=== PATIENT | female | born 1960 | race Caucasian/White ===

== ENCOUNTER 2020-03-24 23:58 | Observation (INO) ==
[2020-03-25] MEDS ORDERED: fentaNYL citrate 100 MCG/2 ML VIAL IV STA (00:16)
--- NOTE | 2020-03-25 00:23 | Emergency Department Note ---
Impression & Plan Altered mental status, Amnesia, Acute headache ED Provider Note Name: ANGELICA FU Age: 60 Sex: F Arrives Via: Walk-In Informant: Patient, ED Provider: Rajesh Corona MD Chief Complaint: Confusion Impression: Altered Mental Status Amnesia Acute Headache Medical Decision Makin yr old female with history Hypothyroid, depression, hyperlipidemia, htn, and remote migraines arrives with after 4+ hours of acute confusion and altered mental status. She has diffuse headache currently as well. She has no focal neuro exam findings, but is having issues with her memory of the events in the last few days, though her nursing home memory is completely intact (just somewhat slow to respond). She was sent for urgent CTa head/neck without acute findings. Pain controlled somewhat with initial dose fentanyl. Labs unremarkable. Her memory does seem to be returning somewhat while here. I am suspicious that this is complex migraine of some sort, though can not rule out stroke at this time. No seizure findings thus seems unlikely seizure related. She does not have evidence meningitis. SAH unlikely given normal CT with less than 6 hours symptoms. Not TPA candidate given no clear neuro deficits other than memory which is slowly improving as it is. Will need to come in for further management given she still has some memory issue, though is improving. She was given decadron/toradol/mag in effort to treat as Migraine varient. Prior Medical Record and Triage/Nursing Notes reviewed by Me Additional history obtained from chart and Differentials:Infection, hypoglycemia, electrolyte abnormalities, overdose, toxicologic, cardiac sources, intracerebral event, neurologic, trauma, as well as other pathologies. Vital Signs: reviewed and remarkable for HTN Interventions: saline lock, fenantyl 50mcg IV, nss bolus, decadron 10mg IV, t oradol 30mg IV, mag 1 gm IV Labs:Reviewed and remarkable for no significant abnormalities Imaging:[facility] Radiologist interpretation reviewed by me: CTA head/neck no acute findings EKG:Per My Interpretation: Indication confusion: Sinus Robin 56 bpm, qtc 418. No Ectopy. No Ischemia. Compared to EKG 03/25/20, no significant changes. Cardiac/Tele Monitoring: Cardiac Monitoring: An Order was placed for continuous cardiac monitoring. The monitor shows a rate of 60 with a normal sinus rhythm. Consults:Dr Jenna Leblanc [facility] Plan: Disposition:Hospitalization. Referred to: PCP Condition: Good Prescriptions:none PDMP: n/a History of Present Illness:60 yr old female arrives for evaluation of acute confusion. notes patient seemed distant and confused around 8pm this evening (4 hrs [employer]). He notes she was sitting just staring in to space. Over the next few hours he realized she had no memory of what had gone on over the last 3 days. He was able to get her in the car and on the way here he memory started returning. Patient notes she has diffuse throbbing headache. Began posterior and is now radiating throughout brain. No neck pain/stiffness, nausea, vision change, fevers, nor weakness. notes a very busy weekend with lots of family visiting which she had no memory of until just a few minutes ago. There is no reported syncope, loc, head injuries, nor other trauma. She has no chest pain, sob, sore throat, double vision, weakness, urinary/bowel changes, abdominal pain, leg pain/swelling, rashes, nor other symptoms. She reports taking all medications properly. She admits she can not remember what happened this afternoon, though vaguely remembers eating turkey dinner (which confirms). She denies etoh, drug use. Nothing seems to make symptoms better though light/sound makes headache worse. She does report very remote history of Migraines though denies any in last few years. ROS: See above HPI for pertinent positives & negatives. A total of 10 systems reviewed and were otherwise negative. Past Medical History:Hypothyroid, depression, hyperlipidemia, HTN, Migraines Past Surgical History:Cardiac Cath (reports negative) Family History:State healthy Social History:Works with elderly, previously worked for government, denies etoh, drugs, tobacco Home Medications:citrizine, vit d3, citalopram, levothyroxine, omeprazole, pravastatin Allergies:NKDA Vitals:Blood Pressure: 183/91, Pulse 67, RR 20, T 36.7C, O2 94% on RA Physical Exam: GENERAL: Patient is uncomfortable appearing and in mild distress. EYES: No scleral icterus, unremarkable pupils. ENT: Mucous membranes moist, no nasal congestion. NECK: No masses appreciated, nomeningismus, trachea is midline. RESPIRATORY: No dyspnea. Clear to auscultation and equal bilaterally. No wheeze, no rhonchi. CARDIOVASCULAR: Regular rate and rhythm.No murmurs, rubs, gallops appreciated. GASTROINTESTINAL: Abdomen soft, non-tender, no peritonitis.Bowel sounds positive.No masses appreciated. BACK: No midline tenderness, no CVA tenderness EXTREMITIES: Normal motion all extremities, no cyanosis, no edema. NEUROLOGIC: Alert though appears mildly encephalopathic with slow to respond, has lapses in memory of the last few hours, no acute motor or sensory deficits, no focal weakness, cranial nerves grossly intact. SKIN: No rash, no jaundice, no diaphoresis. PSYCH: Appropriate GCS: 15 ED Course: Times/Reassessments: multiple throughout with gradually improving headache and memory. No neuro deficits no findings of infectious etiology on repeat exams. Rajesh Corona MD Past Med/Surg History Medical History (Updated 03/25/20 @ 05:52 by Rajesh Corona MD) No significant active problems Social History Smoking Status: Never smoker Hx Alcohol Use: No Hx Substance Use: No Preferred Language: Setswana Communication Ability: Effective Concrete Tester Required: No Beliefs That Will Affect Care: None Current Living Situation: Spouse Other Information That Helps Us Care for You: No Feels Safe at Home: Yes Safety Concerns: Feels Safe At This Time Assistive Devices: CPAP Allergies Allergies Allergy/AdvReac Type Severity Reaction Status Date / Time atorvastatin [From Lipitor] Allergy Unknown Unknown Verified 03/25/20 00:26 Home Meds Home Medications Medication Instructions Recorded Confirmed cetirizine 10 mg PO DAILY PRN 03/25/20 03/25/20 cholecalciferol (vitamin D3) 25 mcg PO DAILY 03/25/20 03/25/20 [Vitamin D3] citalopram 20 mg PO DAILY 03/25/20 03/25/20 levothyroxine 75 mcg PO DAILY 03/25/20 03/25/20 [id number] acid [One 1 tab PO QAM 03/25/20 03/25/20 Daily For Women] omeprazole 20 mg PO DAILY 03/25/20 03/25/20 pravastatin 20 mg PO DAILY 03/25/20 03/25/20 Results & Data (ED) Vital Signs Vital Signs - 24 hr 03/25/20 00:03 03/25/20 01:40 Temperature 36.7 C Temperature Source Oral Pulse Rate 67 Pulse Rate [Left Finger] 66 Respiratory Rate 20 18 Respiratory Depth Normal Blood Pressure 183/91 H Blood Pressure [Right Arm] 161/90 H Blood Pressure Mean 121 Blood Pressure Mean [Right Arm] 113 Blood Pressure Position [Right Arm] Sitting Pulse Oximetry 94 96 Oxygen Delivery Method Room Air Room Air Sepsis Recent Fever Within 48 Hours No Sepsis New/Unexplained Change in Mental Status N/A Sepsis Action Taken by Nursing No Action Required Laboratory Data Result diagrams: 03/25/20 00:32 03/25/20 00:32 Lab Results 03/25/20 03/25/20 03/25/20 Range/Units 00:32 00:32 00:32 WBC 11.40 H (4.8-10.8) K/uL RBC 4.54 (4.2-5.4) M/uL Hgb 13.3 (12.0-16.0) g/dL Hct 39.6 (37-47) % MCV 87.2 (80-100) fL MCH 29.3 (25-34) pg MCHC 33.6 (32-36) g/dL RDW Std Deviation 43.4 (36.4-46.3) fL RDW Coeff of [place] 13.6 (11.5-14.5) % Plt Count 183 (130-400) K/uL MPV 9.9 (7.4-10.4) fL Immature Gran % (Auto) 0.2 % Neut % (Auto) 73.3 % Lymph % (Auto) 19.6 % [place] % (Auto) 5.1 % Eos % (Auto) 1.6 % Baso % (Auto) 0.2 % Neut # (Auto) 8.37 H (1.4-6.5) K/uL Lymph # (Auto) 2.23 (1.2-3.4) K/uL [place] # (Auto) 0.58 (0.11-0.59) K/uL Eos # (Auto) 0.18 (0-0.5) K/uL Baso # (Auto) 0.02 (0-0.2) K/uL Immature Gran # (Auto) 0.02 (0.00-0.02) K/uL PT 10.3 (9.0-12.0) Seconds INR 1.0 (0.9-1.1) APTT 26.7 (21.0-31.0) Seconds PTT Ratio 1.0 Sodium 143 (136-145) mmol/L Potassium 3.9 (3.5-5.1) mmol/L Chloride 109 H (98-107) mmol/L Carbon Dioxide 29 (21-32) mmol/L Anion Gap 5.0 (3-11) BUN 15 (7-18) mg/dl Creatinine 1.07 (0.6-1.2) mg/dl Est Cr Clr Drug Dosing 60.8 ml/min Est GFR ( Amer) 64.4 Est GFR (Non-Af Amer) 55.6 BUN/Creatinine Ratio 13.7 (10-20) Glucose 95 (70-99) mg/dl Calcium 8.9 (8.5-10.1) mg/dl Magnesium 2.4 (1.8-2.4) mg/dl Total Bilirubin 0.5 (0.2-1) mg/dl Direct Bilirubin 0.1 (0-0.2) mg/dl AST 14 L (15-37) U/L ALT 23 (12-78) U/L Alkaline Phosphatase 74 (45-117) U/L Troponin I < 0.015 (0-0.045) ng/ml Total Protein 7.3 (6.4-8.2) gm/dl Albumin 3.8 (3.4-5.0) gm/dl TSH 1.780 (0.300-4.500) uIu/ml Urine Color Urine Appearance (Clear) Urine pH (4.5-7.5) Ur Specific [place] (1.000-1.030) Urine Protein (Negative) Urine Glucose (UA) (Negative) Urine Ketones (Negative) Urine Blood (Negative) Urine Nitrite (Negative) Urine Bilirubin (Negative) Urine Urobilinogen (Negative) Ur Leukocyte Esterase (Negative) Urine Opiates Screen (Neg) Ur Methadone, Qual (Neg) Urine Barbiturates (Neg) Ur Phencyclidine (PCP) (Neg) U Amphetamin/Meth Scrn (Neg) MDMA (Ecstasy) Screen (Neg) U Benzodiazepines Scrn (Neg) Ur Cocaine Metabolite (Neg) U Marijuana (THC) Screen (Neg) Ethyl Alcohol mg/dL (0-3) mg/dl 03/25/20 03/25/20 03/25/20 Range/Units 00:45 00:45 00:51 WBC (4.8-10.8) K/uL RBC (4.2-5.4) M/uL Hgb (12.0-16.0) g/dL Hct (37-47) % MCV (80-100) fL MCH (25-34) pg MCHC (32-36) g/dL RDW Std Deviation (36.4-46.3) fL RDW Coeff of [place] (11.5-14.5) % Plt Count (130-400) K/uL MPV (7.4-10.4) fL Immature Gran % (Auto) % Neut % (Auto) % Lymph % (Auto) % [place] % (Auto) % Eos % (Auto) % Baso % (Auto) % Neut # (Auto) (1.4-6.5) K/uL Lymph # (Auto) (1.2-3.4) K/uL [place] # (Auto) (0.11-0.59) K/uL Eos # (Auto) (0-0.5) K/uL Baso # (Auto) (0-0.2) K/uL Immature Gran # (Auto) (0.00-0.02) K/uL PT (9.0-12.0) Seconds INR (0.9-1.1) APTT (21.0-31.0) Seconds PTT Ratio Sodium (136-145) mmol/L Potassium (3.5-5.1) mmol/L Chloride (98-107) mmol/L Carbon Dioxide (21-32) mmol/L Anion Gap (3-11) BUN (7-18) mg/dl Creatinine (0.6-1.2) mg/dl Est Cr Clr Drug Dosing ml/min Est GFR ( Amer) Est GFR (Non-Af Amer) BUN/Creatinine Ratio (10-20) Glucose (70-99) mg/dl Calcium (8.5-10.1) mg/dl Magnesium (1.8-2.4) mg/dl Total Bilirubin (0.2-1) mg/dl Direct Bilirubin (0-0.2) mg/dl AST (15-37) U/L ALT (12-78) U/L Alkaline Phosphatase (45-117) U/L Troponin I (0-0.045) ng/ml Total Protein (6.4-8.2) gm/dl Albumin (3.4-5.0) gm/dl TSH (0.300-4.500) uIu/ml Urine Color Yellow Urine Appearance Clear (Clear) Urine pH 8.0 H (4.5-7.5) Ur Specific [place] 1.009 (1.000-1.030) Urine Protein Negative (Negative) Urine Glucose (UA) Negative (Negative) Urine Ketones Negative (Negative) Urine Blood Negative (Negative) Urine Nitrite Negative (Negative) Urine Bilirubin Negative (Negative) Urine Urobilinogen Negative (Negative) Ur Leukocyte Esterase Negative (Negative) Urine Opiates Screen Neg (Neg) Ur Methadone, Qual Neg (Neg) Urine Barbiturates Neg (Neg) Ur Phencyclidine (PCP) Neg (Neg) U Amphetamin/Meth Scrn Neg (Neg) MDMA (Ecstasy) Screen Neg (Neg) U Benzodiazepines Scrn Neg (Neg) Ur Cocaine Metabolite Neg (Neg) U Marijuana (THC) Screen Neg (Neg) Ethyl Alcohol mg/dL < 3.0 (0-3) mg/dl Administered Medications Discontinued Medications Dexamethasone (Dexamethasone Sod Inj 10 Mg/Ml Vial) 10 mg IV NOW ONE Stop: 03/25/20 02:23 Last Admin: 03/25/20 02:37 Dose: 10 mg Documented by: [id number] Fentanyl Citrate (Fentanyl Citrate 100 Mcg/2 Ml Vial) 50 mcg IV NOW STA Stop: 03/25/20 00:17 Last Admin: 03/25/20 01:43 Dose: 50 mcg Documented by: [id number] Sodium Chloride (Nss 1000ml) 1,000 mls @ 125 mls/hr IV .Q8H VISHAL Stop: 04/24/20 00:29 Last Admin: 03/25/20 01:43 Dose: 125 mls/hr Documented by: [id number] Magnesium Sulfate/Dextrose (Magnesium Sulfate / D5w) 1 gm in 100 mls @ 100 mls/hr IV NOW STA Stop: 03/25/20 03:22 Last Infusion: 03/25/20 03:38 Dose: 100 mls/hr Documented by: [id number] Admin: 03/25/20 02:38 Dose: 100 mls/hr Documented by: [id number] Sodium Chloride (Nss 1000ml) 1,000 mls @ 125 mls/hr IV .Q8H VISHAL Stop: 04/24/20 02:29 Last Admin: 03/25/20 02:38 Dose: Not Given Documented by: [id number] Ioversol (Optiray 320 125ml) 125 ml IV ONCE ONE Stop: 03/25/20 01:42 Last Admin: 03/25/20 01:41 Dose: 118 ml Documented by: [id number] Ketorolac Tromethamine (Ketorolac Tromethamine 15 Mg/Ml Vial) 15 mg IV NOW STA Stop: 03/25/20 02:23 Last Admin: 03/25/20 02:37 Dose: 15 mg Documented by: [id number] Discharge Plan Visit Data Chief Complaint: Altered Mental Status Stated Complaint: MEMORY LOSS ED Provider: Rajesh Corona Discharge Problem: Altered mental status, Amnesia, Acute headache Patient Disposition: Admitted As Inpatient Discharge Instructions Interventions: ED Discharge Assessment Last Done: 03/25/20 04:18 Discharge Problem: Altered mental status Qualifiers: Altered mental status type: disorientation Qualified Code(s): R41.0 - Disorientation, unspecified Acute headache Qualifiers: Headache type: unspecified Intractability: not intractable Qualified Code(s): R51.9 - Headache, unspecified
[2020-03-25] MEDS ORDERED: SODIUM CHLORIDE 0.9% 1000ML 1,000 ML IV SCH ×2 (00:30→02:30)
[2020-03-25 00:46] LABS: Basophils # (auto) 0.02 K/uL (0-0.2); Basophils % (auto) 0.2 %; Eosinophils # (auto) 0.18 K/uL (0-0.5); Eosinophils % (auto) 1.6 %; Hematocrit (blood only) 39.6 % (37-47); Hemoglobin 13.3 g/dL (12.0-16.0); Immature Granulocytes # (auto) 0.02 K/uL (0.00-0.02); Immature Granulocytes % (auto) 0.2 %; Lymphocytes # (auto) 2.23 K/uL (1.2-3.4); Lymphocytes % (auto) 19.6 %; Mean Corpuscular Hemoglobin 29.3 pg (25-34); Mean Corpuscular Hgb Conc 33.6 g/dL (32-36); Mean Corpuscular Volume 87.2 fL (80-100); Mean Platelet Volume 9.9 fL (7.4-10.4); Monocytes # (auto) 0.58 K/uL (0.11-0.59); Monocytes % (auto) 5.1 %; Neutrophils # (auto) 8.37 K/uL (1.4-6.5); Neutrophils % (auto) 73.3 %; Platelet Count 183 K/uL (130-400); RDW Coefficient of Variation 13.6 % (11.5-14.5); RDW Standard Deviation 43.4 fL (36.4-46.3); Red Blood Count 4.54 M/uL (4.2-5.4)
[2020-03-25 00:56] LABS: Partial Thromboplastin Time 26.7 Seconds (21.0-31.0); Prothrombin Time 10.3 Seconds (9.0-12.0)
[2020-03-25 01:02] LABS: Alanine Aminotransferase 23 U/L (12-78); Albumin Level 3.8 gm/dl (3.4-5.0); Aspartate Aminotransferase 14 U/L (15-37); BUN Creatinine Ratio 13.7 (10-20); Bilirubin Direct 0.1 mg/dl (0-0.2); Blood Urea Nitrogen 15 mg/dl (7-18); Calcium 8.9 mg/dl (8.5-10.1); Carbon Dioxide 29 mmol/L (21-32); Chloride 109 mmol/L (98-107); Creatinine Clr Calc Pharmacy 60.8 ml/min; Est GFR (African American) 64.4; Est GFR (Non-African American) 55.6; Glucose 95 mg/dl (70-99); Magnesium 2.4 mg/dl (1.8-2.4); Potassium 3.9 mmol/L (3.5-5.1); Sodium 143 mmol/L (136-145)
[2020-03-25 01:13] LABS: Alkaline Phosphatase 74 U/L (45-117); Bilirubin,Total 0.5 mg/dl (0.2-1); Total Protein 7.3 gm/dl (6.4-8.2); Troponin I < 0.015 ng/ml (0-0.045)
[2020-03-25] MEDS ORDERED: OPTIRAY 320 125ml IV ONE (01:41)
[2020-03-25] MEDS ORDERED: DEXAMETHASONE SOD INJ 10 MG/ML VIAL IV ONE (02:22)
[2020-03-25] MEDS ORDERED: KETOROLAC TROMETHAMINE 15 MG/ML VIAL IV STA (02:22)
[2020-03-25] MEDS ORDERED: MAGNESIUM SULFATE / D5W 1 GM/100 ML BAG IV STA (02:23)
[2020-03-25 02:24] LABS: Appearance Urine Clear (Clear); Bilirubin Urine Negative (Negative); Blood Urine Negative (Negative); Color Urine Yellow; Glucose Urine UA Negative (Negative); Ketones Urine Negative (Negative); Leukocyte Esterase Urine Negative (Negative); Nitrite Urine Negative (Negative); Protein Urine Negative (Negative); Specific Gravity Urine 1.009 (1.000-1.030); Urobilinogen Urine Negative (Negative)
[2020-03-25 02:45] LABS: Amphetamines+Metham, Urine Neg (Neg); Barbiturates, Urine Neg (Neg); Benzodiazepine, Urine Neg (Neg); Cocaine, Urine Neg (Neg); MDMA (Ecstacy), Urine Neg (Neg); Methadone, Urine Neg (Neg); Opiate, Urine Neg (Neg); Phencyclidine, Urine Neg (Neg)
--- NOTE | 2020-03-25 04:38 | History and Physical Report ---
DATE OF ADMISSION: 03/25/2020 CHIEF COMPLAINT: Amnesia. t HISTORY OF PRESENT ILLNESS: A 60-year-old female with past medical history significant for hyperlipidemia, hypothyroidism, prediabetes, obstructive sleep apnea, noncompliant with CPAP, GERD, history of fibromyalgia, and hypertension who lives with her who was brought in by her because she has some confusion and amnesia. Around 8:00 p.m. on 03/24/2020, the patient was just staring and she was asking the same question repeatedly and she did not remember what they ate for a lunch because they had a good [place] lunch, she could not remember, and she could not remember who the people visited them on that day and also asking the same questions, her got worried and brought her to the hospital and on the way to the hospital, she also complained of some headache, posterior back of the head coming to the front of the head. Currently resting comfortably and hemodynamically stable. She says she still does not remember the whole day what happened, remote memory is intact. She can tell today is 03/24/2020. Could tell her 's name, could tell her name, could tell her date of , could subtract 100 from 7 few times. Imaging studies in the ER, a CTA of the head and neck were done which was unremarkable. Speech is clear. No facial droop seen. As per is able to walk fine and patient denies any dizziness or imbalance. Never happened before. Denies any chest pain, no shortness of breath, no cough, no headache, currently no blurred vision, no earache, no runny nose, no sore throat, no difficulty swallowing. No loss of sense of smell or taste. No exposure to COVID. No abdominal pain. Normal bowel and bladder movements. No rash, no swelling in the legs. ALLERGIES: LIPITOR, IODINE. PAST MEDICAL HISTORY: As mentioned above. PAST SURGICAL HISTORY: Cardiac catheterization, colonoscopy, right breast biopsy. MEDICATIONS: The patient is on cetirizine 10 mg p.o. daily p.r.n., vitamin D 25 mcg p.o. daily, citalopram 20 mg p.o. daily, levothyroxine 75 mcg p.o. daily, multivitamins 1 tablet daily, omeprazole 20 mg p.o. daily, pravastatin 20 mg p.o. daily. FAMILY HISTORY: Significant for mother has diabetes, hypertension. Father has hypertension. Maternal grandmother has diabetes and hypertension. Paternal grandmother has diabetes and hypertension. SOCIAL HISTORY: , lives with her . No smoking, no alcohol, no drug use. REVIEW OF SYMPTOMS: As per HPI. Rest of review of symptoms negative. PHYSICAL EXAMINATION: GENERAL: The patient is of moderate build, not in acute distress. VITAL SIGNS: Temperature 36.7, pulse 66, respiratory rate 18, blood pressure 161/90, oxygen 96% on room air. HEENT: Pupils equal, round, reactive to light. Oral mucosa moist. NECK: No JVD, no neck masses. CARDIOVASCULAR: S1, S2 heard, regular rate and rhythm, no murmur, no gallop. RESPIRATORY SYSTEM: Normal AP diameter. No accessory muscle use. No wheezing, no crackles. ABDOMEN: Soft, bowel sounds present, nontender. No distention. CENTRAL NERVOUS SYSTEM: Cranial nerves II-XII grossly intact. Alert and oriented x3. Power 5/5 in all extremities. No pronator drift. Coordination of movements was normal. [id number] test normal. Sensation is intact. Position sense intact. Recent and remote memory intact. EXTREMITIES: No edema, no erythema. LABORATORY DATA: WBC 11.4, hemoglobin 13.3, hematocrit 39.6, platelets 183. PT 10.3, INR 1, APTT 26.7. Sodium 143, potassium 3.9, chloride 109, bicarbonate 29, BUN 15, creatinine 1.07, serum glucose 95, calcium 8.9, magnesium 2.4, total bilirubin 0.5, direct bilirubin 0.1, AST 14, ALT 23, alkaline phosphatase 74, troponin I less than 0.015. TSH 1.7. Urinalysis negative. Drug screen negative. Ethyl alcohol less than 3. CT of the head and neck unremarkable. IMAGING: Chest x-ray, no acute findings. EKG: Sinus bradycardia, rate of [address] changes seen. ASSESSMENT AND PLAN: This is a 60-year-old female who presents with ongoing memory loss of 1 day duration. 1. Amnesia, possible transient global amnesia, possible rule out stroke/seizures. Does not look as an infectious process going on. Drug screen is negative. Initial imaging studies, CTA of the head and neck is unremarkable. We will follow with MRI scan. We will also check thiamine, vitamin B12, folic acid. We will empirically give IV thiamine 500 mg for any Wernicke encephalopathy though the patient denies any alcohol history. We will consult neurology in a.m. EEG as per neurology. We will follow the MRI scan and closely monitor in the tele floor. Gentle fluids.Stroke workup. 2. Obstructive sleep apnea, does not use CPAP.May need nocturnal pulse ox study while in the hospital. 3. GERD. On PPI. 4. Hypothyroidism, on Synthroid. 5. Prediabetes. We will place on diabetic diet and check for HbA1c levels. 6. Fibromyalgia. Continue citalopram. 7. Hyperlipidemia. Continue statin. Follow lipid profile. 8. Question of history of hypertension, not on medication. We will follow the blood pressure. We will follow echocardiogram. 10. Deep venous thrombosis prophylaxis, sequential compression devices. DISPOSITION: Closely monitor in the tele floor. PT and OT prior to discharge. Social service to help with discharge planning. Level 1 full code. MTDD
[2020-03-25] MEDS ORDERED: ACETAMINOPHEN 325 MG TAB PO PRN (04:53)
[2020-03-25] MEDS ORDERED: ONDANSETRON INJ 2 MG/ML 2 ML VIAL IV PRN (04:53)
[2020-03-25] MEDS ORDERED: POLYETHYLENE (MIRALAX) 17 GM PACK PO PRN (04:53)
[2020-03-25] MEDS ORDERED: CETIRIZINE HCL 10 MG TABLET PO PRN (04:53)
[2020-03-25] MEDS ORDERED: PHARMACIST DISCHARGE MED REC CONSULT PRN (04:53)
[2020-03-25] MEDS ORDERED: NITROGLYCERIN SL 0.4 MG/TAB TAB SL PRN (04:53)
[2020-03-25] MEDS ORDERED: THIAMINE HCL 500 MG in SODIUM CHLORIDE 0.9% 50 ML IV ONE (06:00)
--- NOTE | 2020-03-25 06:49 | XRay Report ---
XR chest 1V portable HISTORY: 60 years-old Female Acute confusion acutely altered mental status COMPARISON: CTA neck of same day TECHNIQUE: Portable AP view of the chest FINDINGS: Cardiac silhouette is upper limits of normal in size. There is no pneumothorax, pleural effusion, air space consolidation or overt pulmonary edema. Bones of the chest appear grossly intact. Degenerative changes are noted involving the shoulders and spine. IMPRESSION: No acute process. ACT 112: Negative or not required by law. The above report was generated using voice recognition software. It may contain grammatical, syntax o r spelling errors. Electronically signed by: Patrice Smith M.D. 03/25/2020 6:48 AM
[2020-03-25] MEDS ORDERED: GADOBUTROL 65ML VIAL IV ONE (06:56)
--- NOTE | 2020-03-25 07:28 | CT Scan Report ---
CT angio head wo/w HISTORY: 60 years-old Female stroke work-up, confusion acute headache with altered mental status COMPARISON: CTA neck and MRI brain studies of same day TECHNIQUE: CTA of the head was obtained both with and without the use of 118 mL Optiray 320. All syed urements were obtained according to NASCET criteria. 3-D coronal and sagittal MIPS were obtained from the axial data set and were submitted for review. Additional noncontrast head CT was obtained. A dos e lowering technique was used consistent with the principals of SADE. FINDINGS: CT HEAD: No acute intracranial hemorrhage, midline shift, abnormal extra-axial collection, hydrocephalus, acut e territorial infarct or intra-axial mass. Minimal senescent calcifications of the lentiform nuclei. 6 mm calcification involves the superior aspect of the falx cerebri. Cerebral venous sinuses appear p atent. No acute calvarial fracture. Mastoid air cells and middle ear cavities are clear. Paranasal si nuses are also generally clear. Soft tissues and orbits are within normal limits. CTA HEAD: The imaged internal carotid arteries are widely patent. The middle and anterior cerebral arteries colt ear normal. The imaged vertebral arteries, basilar and posterior cerebral arteries are patent and wit hin normal limits. There is no aneurysm, dissection, high-grade stenosis or proximal branch occlusion . There is no abnormal intracranial enhancement. IMPRESSION: 1. No acute intracranial abnormality. 2. Unremarkable CTA of the head. ACT 112: Negative or not required by law. The above report was generated using voice recognition software. It may contain grammatical, syntax o r spelling errors. Electronically signed by: Patrice Smith M.D. 03/25/2020 7:27 AM
--- NOTE | 2020-03-25 07:37 | CT Scan Report ---
CT angio neck with con CLINICAL HISTORY: Possible acute stroke. Confusion, headaches. Memory loss. COMPARISON STUDY: No previous studies for comparison. TECHNIQUE: CT angiography was performed from the aortic arch to the skull base. MIP imaging was perfo rmed. The patient was scanned in a dynamic helical fashion during intravenous administration of 118 c c of Optiray 320. A dose lowering technique was utilized adhering to the principles of ALARA. CT DOSE: 1269.24 mGy.cm Technique: CT angiogram of the carotid and vertebral arteries was obtained using intravenous contrast and 3-D reconstruction. NASCET criteria was utilized. Findings: There is mild dilatation of the ascending thoracic aorta which measures 37 mm. The right carotid revealed no evidence of aneurysm and no evidence of dissection. There is no evidenc e of hemodynamic significant stenosis. The left carotid revealed no evidence of hemodynamic significant stenosis. There is no evidence of an eurysm. There is no evidence of dissection. There is no evidence of hemodynamically significant vertebral stenosis. There is no evidence of verte bral dissection. IMPRESSION: No evidence of hemodynamically significant carotid or vertebral artery stenosis. No evidence of disse ction. ACT 112: Negative or not required by law. Electronically signed by: Chaparro Huynh M.D. 03/25/2020 7:35 AM
[2020-03-25] MEDS: PRAVASTATIN SOD 20 MG TAB PO SCH (08:24)
[2020-03-25] MEDS: CHOLECALCIFEROL 1,000 UNITS 25 MCG TAB PO SCH (08:24)
[2020-03-25] MEDS: SODIUM CHLORIDE 0.9% 1000ML 1,000 ML IV SCH ×2 (08:24→18:09)
[2020-03-25] MEDS: CEROVITE ADV FORMULA TAB PO SCH (08:24)
[2020-03-25] MEDS: PANTOprazole 40 MG TAB PO SCH (08:24)
[2020-03-25] MEDS: LEVOTHYROXINE SODIUM 75 MCG TABLET PO SCH (08:24)
[2020-03-25] MEDS: CITALOPRAM 20 MG TAB PO SCH (08:24)
[2020-03-25] MEDS: ASPIRIN 81 MG ECTAB PO SCH (08:25)
[2020-03-25 09:06] LABS: Folate (Folic Acid) 16.84 ng/ml (>5.38)
--- NOTE | 2020-03-25 09:15 | Magnetic Resonance Report ---
MRI OF THE BRAIN WITHOUT AND WITH IV CONTRAST CLINICAL HISTORY: cva? Altered mental status. COMPARISON STUDY: Head CT and CTA of the head March 25, 2020. TECHNIQUE: Utilizing a 1.5 Liana magnet and dedicated coil, multiplanar, multiecho imaging of the br ain was performed pre and postcontrast administration. IV administration of 9.4 mL of Gadavist contr ast was uneventful. FINDINGS: There is a punctate 2 mm focus of restricted diffusion within the right hippocampus on axia l diffusion-weighted image . This is hypointense on the ADC map. No additional foci of restric percy diffusion are noted. No acute intracranial hemorrhage, midline shift or mass effect is present. T he ventricular system is normal. Basilar cisterns are patent. There are no extra-axial collections. T here is no intracranial mass or pathologic enhancement. Calvarial signal is normal. Numerous small wh ite matter T2 hyperintense foci favor small vessel disease. IMPRESSION: 1. Punctate 2 mm focus of restricted diffusion within the right hippocampus. This can be seen in the setting of transient global amnesia. 2. No intracranial mass or pathologic enhancement. 3. White matter T2 hyperintense foci which favor small vessel disease. ACT 112: Negative or not required by law. Electronically signed by: Gato Oden M.D. 03/25/2020 9:14 AM
--- NOTE | 2020-03-25 10:33 | Electroencephalogram ---
EEG Procedure Note Date of Service March 25, 2020 Start / End Times Start Time: 0 800 End Time: 0 840 Referring Physician Avelino Haq MD History Probable transient global amnesia question seizures Home Medication List Home Medications Medication Instructions Recorded Confirmed Type cetirizine 10 mg PO DAILY PRN 03/25/20 03/25/20 History cholecalciferol (vitamin D3) 25 mcg PO DAILY 03/25/20 03/25/20 History [Vitamin D3] citalopram 20 mg PO DAILY 03/25/20 03/25/20 History levothyroxine 75 mcg PO DAILY 03/25/20 03/25/20 History meoyxfpl-vbse-bff-folic acid [One 1 tab PO QAM 03/25/20 03/25/20 History Daily For Women] omeprazole 20 mg PO DAILY 03/25/20 03/25/20 History pravastatin 20 mg PO DAILY 03/25/20 03/25/20 History Inpatient Medication List Aspirin (Aspirin 81 Mg Ectab) 81 mg PO QAM [facility] Stop: 04/24/20 08:59 Last Admin: 03/25/20 08:25 Dose: 81 mg Documented by: [id number] Citalopram Hydrobromide (Citalopram 20 Mg Tab) 20 mg PO DAILY VISHAL Stop: 04/24/20 08:59 Last Admin: 03/25/20 08:24 Dose: 20 mg Documented by: [id number] Sodium Chloride (Nss 1000ml) 1,000 mls @ 100 mls/hr IV .Q10H VISHAL Stop: 04/24/20 04:52 Last Admin: 03/25/20 08:24 Dose: 100 mls/hr Documented by: [id number] Levothyroxine Sodium (Levothyroxine Sodium 75 Mcg Tablet) 75 mcg PO DAILYBB VISHAL Stop: 04/24/20 06:29 Last Admin: 03/25/20 08:24 Dose: 75 mcg Documented by: [id number] Multivitamins/Minerals (Cerovite Adv Formula Tab) 1 tab PO QAM VISHAL Stop: 04/24/20 08:59 Last Admin: 03/25/20 08:24 Dose: 1 tab Documented by: [id number] Pantoprazole Sodium (Pantoprazole 40 Mg Tab) 40 mg PO DAILY VISHAL Stop: 04/24/20 08:59 Last Admin: 03/25/20 08:24 Dose: 40 mg Documented by: [id number] Pravastatin Sodium (Pravastatin Sod 20 Mg Tab) 20 mg PO DAILY VISHAL Stop: 04/24/20 08:59 Last Admin: 03/25/20 08:24 Dose: 20 mg Documented by: [id number] Vitamin D (Cholecalciferol 1,000 Units 25 Mcg Tab) 1,000 units PO DAILY VISHAL Stop: 04/24/20 08:59 Last Admin: 03/25/20 08:24 Dose: 1,000 units Documented by: [id number] Discontinued Medications Dexamethasone (Dexamethasone Sod Inj 10 Mg/Ml Vial) 10 mg IV NOW ONE Stop: 03/25/20 02:23 Last Admin: 03/25/20 02:37 Dose: 10 mg Documented by: [id number] Fentanyl Citrate (Fentanyl Citrate 100 Mcg/2 Ml Vial) 50 mcg IV NOW STA Stop: 03/25/20 00:17 Last Admin: 03/25/20 01:43 Dose: 50 mcg Documented by: [id number] Gadobutrol (Gadobutrol 65ml Vial) 9.4 ml IV ONCE ONE Stop: 03/25/20 06:57 Last Admin: 03/25/20 06:08 Dose: 9.4 ml Documented by: [id number] Sodium Chloride (Nss 1000ml) 1,000 mls @ 125 mls/hr IV .Q8H VISHAL Stop: 04/24/20 00:29 Last Infusion: 03/25/20 07:32 Dose: 0 mls/hr Documented by: [id number] Admin: 03/25/20 01:43 Dose: 125 mls/hr Documented by: [id number] Magnesium Sulfate/Dextrose (Magnesium Sulfate / D5w) 1 gm in 100 mls @ 100 mls/hr IV NOW STA Stop: 03/25/20 03:22 Last Infusion: 03/25/20 03:38 Dose: 100 mls/hr Documented by: [id number] Admin: 03/25/20 02:38 Dose: 100 mls/hr Documented by: [id number] Sodium Chloride (Nss 1000ml) 1,000 mls @ 125 mls/hr IV .Q8H VISHAL Stop: 04/24/20 02:29 Last Admin: 03/25/20 02:38 Dose: Not Given Documented by: [id number] Thiamine HCl 500 mg/ Sodium (Chloride) 55 mls @ 208 mls/hr IV ONE ONE Stop: 03/25/20 06:15 Last Infusion: 03/25/20 08:46 Dose: 0 mls/hr Documented by: [id number] Admin: 03/25/20 08:24 Dose: 208 mls/hr Documented by: [id number] Ioversol (Optiray 320 125ml) 125 ml IV ONCE ONE Stop: 03/25/20 01:42 Last Admin: 03/25/20 01:41 Dose: 118 ml Documented by: [id number] Ketorolac Tromethamine (Ketorolac Tromethamine 15 Mg/Ml Vial) 15 mg IV NOW STA Stop: 03/25/20 02:23 Last Admin: 03/25/20 02:37 Dose: 15 mg Documented by: [id number] Description This is a 21 electrode EEG with a single channel dedicated to limited EKG. The electrodes were placed in accordance with the International 10-20 system. This EEG was done as a bedside recording is of good technical quality with few or no muscle movement artifact. Simultaneous video analysis of patient movement and behavior was obtained. Drowsiness is not clearly recorded. Photic stimulation was performed. In his condition there is evidence for normal background rhythm in the alpha range 1 to 10 Hz maximal frequency and 30 V maximal amplitude. This is symmetrical and maximal in the posterior head regions. Central modest voltage mid frequency theta activity is also seen in symmetrical fashion along with anterior head region maximal bilateral symmetrical normal distress activity in the beta range Photic stimulation provokes a modest driving response with no myogenic or photoparoxysmal components No time during the tracing is evidence for potentially epileptogenic activity. Interpretation Normal EEG during wakefulness Clinical Correlation His EEG is normal no special evidence for focal or generalized slowing or potentially epileptogenic activity
--- NOTE | 2020-03-25 12:51 | Electrocardiogram Report ---
Test Reason : Blood Pressure : / mmHG Vent. Rate : 056 BPM Atrial Rate : 056 BPM P-R Int : 146 ms QRS Dur : 104 ms QT Int : 434 ms P-R-T Axes : 029 -07 009 degrees QTc Int : 418 ms Sinus bradycardia Moderate voltage criteria for LVH, may be normal variant Borderline ECG No previous ECGs available Confirmed by Wilton Aguilar ([id number]) on 03/25/2020 12:51:39 PM Referred By: REFERRED SELF Confirmed By:Wilton Aguilar
--- NOTE | 2020-03-25 16:01 | Hospitalist Progress Note ---
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 Doubt any acute stroke Clinically a lot better today and denies any symptoms as of this morning Lipid profile remain unremarkable and Echo is not show any significant abnormality: EF 60 to 65%, mild concentric LVH, grade 1 diastolic dysfunction, anterior mitral valve leaflet appears mildly thickened, mild mitral regurgitation and mild TR, Doppler findings do not suggest pulmonary hypertension and no intra-atrial shunt. Continue with aspirin as advised by the neurologist (2) Altered mental status: As above-resolved (3) Acute headache: Presented with headache without any associated symptoms No neck is stiffness Rec seems to be under control No more headache and will not give any extra medications for migraine (4) NELL (obstructive sleep apnea): Does not use any CPAP Saturation remains normal We will have outpatient sleep study recommendation (5) Fibromyalgia: No acute issue (6) Hypothyroidism: Continue supplement (7) Hyperlipidemia: (8) GERD (gastroesophageal reflux disease): Continue PPI DVT prophylaxis SCDs for now Will be discharged this afternoon Admission and Anticipated Discharge Date Admission Date: March 25, 2020 Subjective 03/25/2020 The patient was seen and examined in ICU She has been feeling a little better but is still cannot remember things that happened yesterday Her speech seems to be a little wart but she denies She does not have any focal neurological symptoms 03/26/2020 The patient was seen and examined in medical telemetry unit She has been feeling a lot better today and denies any symptoms No headache and no dysarthria but he still has memory impairment as before Review of Systems Review of Systems: All systems reviewed and are unremarkable except as noted below Neurologic: + headache(s), + abnormal speech and + memory loss Physical Exam Physical Exam: Lying in bed comfortably Constitutional: well developed, well nourished and + obese; no acute distress and not ill appearing Eyes: PERRL, conjunctivae normal, anicteric sclerae ENMT: external ear and nose normal, oropharynx normal Neck: trachea midline, no thyromegaly Respiratory: normal respiratory effort; no respiratory distress Auscultation: lungs clear to auscultation bilaterally Cardiovascular: Rate/Rhythm: regular rate Heart Sounds: no murmur Gastrointestinal (Abdomen): Inspection/Auscultation: abdomen normal to inspection; + abnormal bowel sounds Percussion/Palpation: + abdomen tender and abdomen soft Musculoskeletal: No acute arthritis in any joint Neurologic: moves all extremities; no focal motor deficits Speech / Cognition: normal speech (Slight difficulty in speech and finding words) Alert, awake and oriented x3. No focal sensory and or motor deficit appreciated Psychiatric: A+Ox3, euthymic affect Lymphatic: no cervical or axillary lymphadenopathy Results & Data Results & Data ([facility]) Vital Signs (Past 12 Hours) Vital Signs Temp Pulse Pulse Resp BP BP Pulse Ox 03/25/20 12:00 36.9 C 82 16 138/70 96 03/25/20 08:35 36.7 C 75 16 151/86 H 96 03/25/20 04:45 36.6 C 65 16 156/93 H 98 03/25/20 04:18 65 18 145/81 H 95 Laboratory Results Short CBC 03/25/20 Range/Units 00:32 WBC 11.40 H (4.8-10.8) K/uL Hgb 13.3 (12.0-16.0) g/dL Hct 39.6 (37-47) % Plt Count 183 (130-400) K/uL BMP 03/25/20 00:32 Sodium 143 Potassium 3.9 Chloride 109 H Carbon Dioxide 29 BUN 15 Creatinine 1.07 Glucose 95 Calcium 8.9 Cardiac Enzymes 03/25/20 Range/Units 00:32 Troponin I < 0.015 (0-0.045) ng/ml Liver Function 03/25/20 Range/Units 00:32 Total Bilirubin 0.5 (0.2-1) mg/dl Direct Bilirubin 0.1 (0-0.2) mg/dl AST 14 L (15-37) U/L ALT 23 (12-78) U/L Alkaline Phosphatase 74 (45-117) U/L Albumin 3.8 (3.4-5.0) gm/dl Urine 03/25/20 Range/Units 00:45 Urine Color Yellow Urine Appearance Clear (Clear) Urine pH 8.0 H (4.5-7.5) Ur Specific [place] 1.009 (1.000-1.030) Urine Protein Negative (Negative) Urine Glucose (UA) Negative (Negative) Repeat CBC and PRP remain unremarkable Medications Administered Current Inpatient Medications Acetaminophen (Acetaminophen 325 Mg Tab) 650 mg PO Q4H PRN PRN Reason: Pain or Fever Stop: 04/24/20 04:52 Aspirin (Aspirin 81 Mg Ectab) 81 mg PO QAM [facility] Stop: 04/24/20 08:59 Last Admin: 03/25/20 08:25 Dose: 81 mg Documented by: Cetirizine HCl (Cetirizine Hcl 10 Mg Tablet) 10 mg PO DAILY PRN PRN Reason: Allergy Symptoms Stop: 04/24/20 04:52 Citalopram Hydrobromide (Citalopram 20 Mg Tab) 20 mg PO DAILY [facility] Stop: 04/24/20 08:59 Last Admin: 03/25/20 08:24 Dose: 20 mg Documented by: Sodium Chloride (Nss 1000ml) 1,000 mls @ 100 mls/hr IV .Q10H [facility] Stop: 04/24/20 04:52 Last Admin: 03/25/20 08:24 Dose: 100 mls/hr Documented by: Levothyroxine Sodium (Levothyroxine Sodium 75 Mcg Tablet) 75 mcg PO DAILYBB [facility] Stop: 04/24/20 06:29 Last Admin: 03/25/20 08:24 Dose: 75 mcg Documented by: Miscellaneous Information (Pharmacist Discharge Med Rec Consult) 1 ea N/A UD PRN PRN Reason: Consult Stop: 04/24/20 04:52 Multivitamins/Minerals (Cerovite Adv Formula Tab) [facility] [place]: 04/24/20 08:59 Last Admin: 03/25/20 08:24 Dose: 1 tab Documented by: Nitroglycerin (Nitroglycerin Sl 0.4 Mg/Tab Tab) 0.4 mg SL UD PRN PRN Reason: Chest Pain Stop: 04/24/20 04:52 Ondansetron HCl (Ondansetron Inj 2 Mg/Ml 2 Ml Vial) 4 mg IV Q6H PRN PRN Reason: Nausea Stop: 04/24/20 04:52 Pantoprazole Sodium (Pantoprazole 40 Mg Tab) 40 mg PO DAILY [facility] Stop: 04/24/20 08:59 Last Admin: 03/25/20 08:24 Dose: 40 mg Documented by: Polyethylene Glycol (Polyethylene (Miralax) 17 Gm Pack) 17 gm PO DAILY PRN PRN Reason: Constipation Stop: 04/24/20 04:52 Pravastatin Sodium (Pravastatin Sod 20 Mg Tab) 20 mg PO DAILY VISHAL Stop: 04/24/20 08:59 Last Admin: 03/25/20 08:24 Dose: 20 mg Documented by: Vitamin D (Cholecalciferol 1,000 Units 25 Mcg Tab) 1,000 units PO DAILY [facility] Stop: 04/24/20 08:59 Last Admin: 03/25/20 08:24 Dose: 1,000 units Documented by: (1) Acute headache Headache type: unspecified Intractability: not intractable Qualified Code(s): R51.9 - Headache, unspecified (2) Altered mental status Altered mental status type: disorientation Qualified Code(s): R41.0 - Disorientation, unspecified
--- NOTE | 2020-03-25 16:05 | Communication Note ---
Date of Service: March 25, 2020 Lucretia is 60 years old who is right-handed, suffers from sleep apnea, some depression, dyslipidemia, vitamin D deficiency, GERD, and hypothyroidism and significantly has a history of migraine headaches with visual aura but these have been diminishing over the past decade or so, is cared for by Dr. Christopher Salgado and presented to the emergency room yesterday with an episode of amnesia beginning sometime around lunch characterized by repetitious questioning a blank stare but no overt seizure activity or loss of motor control, ataxia etc. and apparently associated with some nausea and vomiting although she has no recall of this and after she arrived here in the memory began to clear, she developed a headache which has now moved over to her right temporal area where her migraines usually are located and is improved. Her memory is back to normal with the exception that she has absolutely no recall of probably 10 to 12 hours of time when she apparently interacted with family members (she has vague recollection of this) and did apparently eat a turkey meal (she also vaguely recalls this) and is understandably frustrated about her inability to reconstruct the day Otherwise she has no significant symptoms besides a headache Her medications knee outpatient basis include cetirizine, cholecalciferol, Celexa, levothyroxine, multivitamins, omeprazole and pravastatin. She has allergies to atorvastatin Family history social history are all as recorded on prior notes from the emergency room and her admission history and physical Review of systems reveals no recent systemic illnesses weight loss weight gain new issues or full HEENT, cardiovascular pulmonary gastrointestinal genitourinary musculoskeletal dermatologic or hematologic issues On exam currently her blood pressure 138/70 pulse 79 respirations 16 she is afebrile has normal O2 saturations She is awake alert oriented in 3 spheres as nondysarthric speech normal eye movements normal visual ludwig normal facial motility and strength no tremor or tics or choreiform activity no cerebellar dysmetria can move all extremities well has normal gross strength testing, reflexes are little hypoactive toes are downgoing no [place] signs are seen in gross sensation is intact to most modalities Imaging studies have shown essentially normal extracranial and intracranial c irculation but an MRI scan is showing a very small punctate focus of 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 The small area of ischemia in the right hippocampus can be seen in this entity EEG is normal revealing no seizure activity and we rarely see abnormal EEGs and transient global amnestic patients We certainly find no source of cardiogenic or arterial to arterial embolization but she does have some risk factors for underlying vascular disease and at this point I would recommend she be placed on a baby aspirin per day and I think she could be discharged to home with follow-up in the neurology clinic in 4 to 6 weeks Currently the frequency of her migraines is so low that I would be hard pressed to recommend preventative medications and the SSRI inhibitor she is taking occasionally do provide some response in terms of reducing the frequency of these events Avelino Haq MD
[2020-03-26] MEDS: SODIUM CHLORIDE 0.9% 1000ML 1,000 ML IV SCH (04:01)
[2020-03-26] MEDS: LEVOTHYROXINE SODIUM 75 MCG TABLET PO SCH (05:27)
[2020-03-26 07:48] LABS: Basophils # (auto) 0.01 K/uL (0-0.2); Basophils % (auto) 0.1 %; Eosinophils # (auto) 0.01 K/uL (0-0.5); Eosinophils % (auto) 0.1 %; Immature Granulocytes # (auto) 0.01 K/uL (0.00-0.02); Immature Granulocytes % (auto) 0.1 %; Lymphocytes # (auto) 1.79 K/uL (1.2-3.4); Mean Corpuscular Hemoglobin 29.1 pg (25-34); Mean Corpuscular Hgb Conc 33.3 g/dL (32-36); Mean Corpuscular Volume 87.2 fL (80-100); Mean Platelet Volume 10.5 fL (7.4-10.4); Monocytes # (auto) 0.83 K/uL (0.11-0.59); Neutrophils # (auto) 9.27 K/uL (1.4-6.5); Neutrophils % (auto) 77.7 %; Platelet Count 181 K/uL (130-400); RDW Coefficient of Variation 13.7 % (11.5-14.5); RDW Standard Deviation 43.8 fL (36.4-46.3); Red Blood Count 4.13 M/uL (4.2-5.4); White Blood Count 11.92 K/uL (4.8-10.8)
[2020-03-26] MEDS: CEROVITE ADV FORMULA TAB PO SCH (08:01)
[2020-03-26] MEDS: PRAVASTATIN SOD 20 MG TAB PO SCH (08:01)
[2020-03-26] MEDS: PANTOprazole 40 MG TAB PO SCH (08:01)
[2020-03-26] MEDS: CHOLECALCIFEROL 1,000 UNITS 25 MCG TAB PO SCH (08:01)
[2020-03-26] MEDS: ASPIRIN 81 MG ECTAB PO SCH (08:01)
[2020-03-26] MEDS: CITALOPRAM 20 MG TAB PO SCH (08:01)
[2020-03-26 08:20] LABS: BUN Creatinine Ratio 19.8 (10-20); Calcium 8.5 mg/dl (8.5-10.1); Creatinine Clr Calc Pharmacy 69.8 ml/min; Est GFR (African American) 75.4; Potassium 4.2 mmol/L (3.5-5.1)
[2020-03-26 10:33] LABS: Estimated Average Glucose 123 mg/dl; Hemoglobin A1C 5.9 % (4.5-5.6)
--- NOTE | 2020-03-26 18:25 | Discharge Summary ---
Date of Service March 26, 2020 Admission HPI Per Admitting Provider DICTATED BY: Capo West MD DATE OF ADMISSION: 03/25/2020 CHIEF COMPLAINT: Amnesia. t HISTORY OF PRESENT ILLNESS: A 60-year-old female with past medical history significant for hyperlipidemia, hypothyroidism, prediabetes, obstructive sleep apnea, noncompliant with CPAP, GERD, history of fibromyalgia, and hypertension who lives with her who was brought in by her because she has some confusion and amnesia. Around 8:00 p.m. on 03/24/2020, the patient was just staring and she was asking the same question repeatedly and she did not remember what they ate for a lunch because they had a good [place] lunch, she could not remember, and she could not remember who the people visited them on that day and also asking the same questions, her got worried and brought her to the hospital and on the way to the hospital, she also complained of some headache, posterior back of the head coming to the front of the head. Currently resting comfortably and hemodynamically stable. She says she still does not remember the whole day what happened, remote memory is intact. She can tell today is 03/24/2020. Could tell her 's name, could tell her name, could tell her date of , could subtract 100 from 7 few times. Imaging studies in the ER, a CTA of the head and neck were done which was unremarkable. Speech is clear. No facial droop seen. As per is able to walk fine and patient denies any dizziness or imbalance. Never happened before. Denies any chest pain, no shortness of breath, no cough, no headache, currently no blurred vision, no earache, no runny nose, no sore throat, no difficulty swallowing. No loss of sense of smell or taste. No exposure to COVID. No abdominal pain. Normal bowel and bladder movements. No rash, no swelling in the legs. Admission Exam Per Admitting Provider GENERAL: The patient is of moderate build, not in acute distress. VITAL SIGNS: Temperature 36.7, pulse 66, respiratory rate 18, blood pressure 161/90, oxygen 96% on room air. HEENT: Pupils equal, round, reactive to light. Oral mucosa moist. NECK: No JVD, no neck masses. CARDIOVASCULAR: S1, S2 heard, regular rate and rhythm, no murmur, no gallop. RESPIRATORY SYSTEM: Normal AP diameter. No accessory muscle use. No wheezing, no crackles. ABDOMEN: Soft, bowel sounds present, nontender. No distention. CENTRAL NERVOUS SYSTEM: Cranial nerves II-XII grossly intact. Alert and oriented x3. Power 5/5 in all extremities. No pronator drift. Coordination of movements was normal. Sxzl-go-[id number] test normal. Sensation is intact. Position sense intact. Recent and remote memory intact. EXTREMITIES: No edema, no erythema. Principal Diagnosis Amnesia-likely secondary to migrainous transient global amnesia, NELL, fibromyalgia, hypothyroidism Discharge Exam Constitutional well developed, well nourished and + obese; no acute distress and not ill appearing Eyes PERRL, conjunctivae normal, anicteric sclerae ENMT external ear and nose normal, oropharynx normal Neck trachea midline, no thyromegaly Respiratory normal respiratory effort; no respiratory distress Auscultation: lungs clear to auscultation bilaterally Cardiovascular Rate/Rhythm: regular rate Heart Sounds: no murmur Gastrointestinal (Abdomen) Inspection/Auscultation: abdomen normal to inspection; + abnormal bowel sounds Percussion/Palpation: + abdomen tender and abdomen soft Neurologic moves all extremities; no focal motor deficits Speech / Cognition: normal speech (Slight difficulty in speech and finding words) Psychiatric A+Ox3, euthymic affect Lymphatic no cervical or axillary lymphadenopathy Discharge Data Allergies Allergy/AdvReac Type Severity Reaction Status Date / Time atorvastatin [From Lipitor] Allergy Unknown Unknown Verified 03/25/20 00:26 Consultations 03/25/20 02:22 ED Decision to Admit Stat 03/25/20 04:53 Consult Case Management - Discharge Planning Routine Consult Case Management - Discharge Planning Routine 03/25/20 08:00 Consult Neurology Routine Ordered Studies 03/25/20 00:16 CT angio head wo/w Urgent CT angio neck with con Urgent 03/25/20 04:53 MR brain wo/w con Urgent Hospital Course (1) Amnesia: Presented with memory impairment of 1 day duration prior to admission She did not have any other focal neurological signs CT of the head and CTAs are unremarkable MRI is showing punctate 2 mm focus of restricted diffusion within the right hippocampus Feels a little better since admission Has been getting intravenous thiamine empirically, doubt any Wernicke's Awaiting neuro evaluation-appreciate neuro input and recommendation Her condition is probably due to migrainous transient global amnesia. Doubt any acute stroke Clinically a lot better today and denies any symptoms as of this morning Lipid profile remain unremarkable and Echo is not show any significant abnormality: EF 60 to 65%, mild concentric LVH, grade 1 diastolic dysfunction, anterior mitral valve leaflet appears mildly thickened, mild mitral regurgitation and mild TR, Doppler findings do not suggest pulmonary hypertension and no intra-atrial shunt. Continue with aspirin as advised by the neurologist (2) Altered mental status: As above-resolved (3) Acute headache: Presented with headache without any associated symptoms No neck is stiffness Rec seems to be under control No more headache and will not give any extra medications for migraine (4) NELL (obstructive sleep apnea): Does not use any CPAP Saturation remains normal We will have outpatient sleep study recommendation (5) Fibromyalgia: No acute issue (6) Hypothyroidism: Continue supplement (7) Hyperlipidemia: (8) GERD (gastroesophageal reflux disease): Continue PPI DVT prophylaxis SCDs for now Will be discharged this afternoon Total Time Total Time Spent Total Time Spent (In Minutes): 35 minutes Total Time Includes: Examination of the Patient, Discharge Planning, Medication Reconciliation and Communication With Other Providers Discharge Plan Discharge Items Patient Disposition: Home - Self-Care Reason For Visit: AMNESIA Discharge Diagnosis: Amnesia-likely secondary to migrainous transient global amnesia, NELL, fibromyalgia, hypothyroidism Condition on Discharge: Good Activity: Resume your previous activity Non-emergency contact: Primary Care Provider Call non-emergency contact if: you have any medication questions and your symptoms worsen Follow-up/Referrals: Rafia Rider PA-C [Physician Business Agent] - (Date & Time 04/29/2020 11:20 AM Provider Rafia Rider PA-C Department Neurology [facility] ) Christopher Salgado MD [Primary Care Provider] - (Date & Time 04/01/2020 11:20 AM Provider Christopher Salgado MD Department Family Practice [facility] ) Diet: Carb Consistent or DM2 and Heart Healthy Addtl Attending Provider Instructions: Please take precaution to avoid fall Only new medication is aspirin 81 mg daily. Pending Studies at Discharge: No Stand-Alone Forms: My [facility], Smoking Cessation Medications and DC Order Prescriptions: New aspirin 81 mg Tablet,Delayed Release (Dr/Ec) 81 mg PO QAM 30 Days Qty: 30 RF: 0 Continued levothyroxine 75 mcg tablet 75 mcg PO DAILY RF: 0 citalopram 20 mg tablet 20 mg PO DAILY RF: 0 omeprazole 20 mg capsule,delayed release(DR/EC) 20 mg PO DAILY RF: 0 pravastatin 20 mg tablet 20 mg PO DAILY RF: 0 cholecalciferol (vitamin D3) [Vitamin D3] 25 mcg (1,000 unit) Tablet 25 mcg PO DAILY RF: 0 cetirizine 10 mg Tablet 10 mg PO DAILY PRN (Reason: Allergy Symptoms) RF: 0 One Daily For Women 18-0.4 mg Tablet 1 tab PO QAM RF: 0 Discharge Orders: Discharge Order (Routine); Ordered 03/26/20 Ordered By: Jorge L Álvarez Admission Data Admit Date/Time: 03/25/20 03:12 Attending Provider: Jorge L Álvarez Admit Provider: Capo West Primary Care Provider: Christopher Salgado Other Providers: Capo West ; Avelino Haq
== END 2020-03-26 14:39 | disposition home or self-care (01) ==
LOC: ED 23:58 → 1E 03-25 03:12 → INTOOBSV 03-25 03:12 → 1E 03-25 04:18 → 2N 03-25 18:20